=== PATIENT | female | born 1945 | race Caucasian/White ===

== ENCOUNTER 2023-01-16 14:17 | Emergency (ER) | payer BC, SELFPAY ==
[2023-01-16 14:30] VITALS: BP 128/81; PULSE 77; RESP 18; TEMP 37.3; O2SAT 97
--- NOTE | 2023-01-16 14:38 | W.ED.GENAD ---
Discharge Plan Discharge Details Chief Complaint: Fall/Non TraumaCriteria Clinical Impression: Immunization, tetanus-diphtheria, Skin tear of left elbow without complication Primary Care Provider: Lauren Calzada ED Provider: Alfredo Daniels Home Meds and New Rx's Prescriptions: No Action No Known Home Meds Medical Decision Making This is an overall well-appearing normothermic and not tachycardic 78-year-old female with remote bilateral hip prostheses now with bilateral groin pain status post fall concerning for periprosthetic fractures. Primary survey intact. Reassuring shock index. On secondary survey patient has a left elbow skin tear. We will clean and dress her wound. Will update tetanus status. No underlying left elbow tenderness to suggest acute osseous abnormality so will defer x-ray at this point time. Patient did reportedly hit her head. Based on her age will obtain CT head. No midline cervical spinal tenderness and negative based on Nexus criteria's as result, no indication for CT cervical spine. No back tenderness to suggest benefit from axial imaging given my exceedingly low suspicion for fracture. Per Nexus criteria, cervical CT not obtained. The patient had no c-spine midline tenderness, no evidence of intoxication, was AAOx3, had no focal neurological deficits, and no painful distracting injuries. No preceding chest pain to suggest ACS. No preceding dizziness to suggest PE. No recent nausea nor vomiting to suggest intra-abdominal process. Similarly given no GI losses my suspicion for SALAS and acute electrolyte abnormalities is exceedingly low so we will defer BMP at this point time. Patient is not pale nor is she had any black or bloody stools to suggest acute GI bleed. No reported shortness of breath and equal breath sounds so I am not concerned for pneumothorax so we will defer chest imaging at this point time given the lack of chest wall tenderness. No hypoxia nor chest tenderness to suggest increased risk for rib fractures. If plain films are negative for any acute osseous abnormalities of the patient's hips and pelvis will obtain dry CT scan of her pelvis to increase sensitivity for periprosthetic fractures. 3:[address] head negative for any acute intracranial findings. 3:53 PM Patient's x-ray was negative for any acute osseous abnormalities and negative for any periprosthetic fractures. Given my concern for fracture will complete a dry CT pelvis. I had to order a CT abdomen pelvis but I spoke with Marcio from radiology and I wrote in my order that I only needed a CT of her pelvis without contrast. I also ordered IV acetaminophen for analgesia and basic labs in the event that the patient required hospitalization for MRI which could certainly increase sensitivity for periprosthetic fracture above both plain films and CT scan. Patient may or may not benefit from evaluation by PT in the morning but will defer this to Amirah Gibbs to whom I signed patient out. HPI General Date/Time Provider Initiated Documentation: 01/16/23 14:25. HPI Narrative: This is a previously healthy 78-year-old female arriving via private vehicle with remote prior bilateral hip replacements now with groin pain. She reports that 2 days ago a large dog jumped on her chest causing her to fall backwards and land on the ground. She hit her head but did not lose consciousness. She was able to get up but subsequently has had to ambulate using crutches which is new to her. She lives alone in [facility]. She is not on any blood thinners. She denies any neck pain nausea vomiting shortness of breath chest pain dysuria and frequency. No shortness of breath nor chest pain. She occasionally drinks ethanol but denies routine tobacco and illicits. Related Data Home Medications Medication Instructions Recorded Confirmed Unknown [No Known Home Meds] 01/16/23 01/16/23 Allergies Allergy/AdvReac Type Severity Reaction Status Date / Time No Known Allergies Allergy Unverified 01/16/23 14:35 General Stated Complaint: Fall/Non TraumaCriteria ELADIO: 3 PFSH All Active Problems (Updated 01/16/23 @ 14:54 by Alfredo Daniels MD) Immunization, tetanus-diphtheria (Acute) Skin tear of left elbow without complication (Acute) Social History Smoking/Tobacco Use Status: Never Smoking risk assessment performed?: Yes Alcohol Intake: current Alcohol Intake frequency: holidays/special occasions only Alcohol type: beer Substance use type: does not use Do you feel safe at home: Yes Do you feel safe in your relationship?: Yes Exam Narrative Exam Narrative: General: Well-appearing in no acute distress speaking in complete sentences. Head: Normocephalic, atraumatic. Eye: Pupils equal, round reactive to light. Extraocular eye movements intact. No conjunctival injection. No scleral icterus. Ear, nose, mouth, throat: Grossly normal inspection. Normal voice, handling secretions normally. Neck: Trachea midline. No midline cervical spinal tenderness. Back: No midline thoracic nor lumbar spinal tenderness. No step-offs no deformities. Cardiovascular: Well-perfused distal extremities. Regular rate and rhythm. Respiratory: Nonlabored respiration. Clear lungs bilaterally. Chest wall: No chest wall tenderness Gastrointestinal: Scaphoid, nontender and nondistended abdomen. No rebound or guarding. Musculoskeletal: Patient does have difficulty lifting her right leg onto the stretcher. Her pelvis is stable to anterior and posterior compression. She does have pain in her right groin with flexing her right hip passively and her left hip passively. Bilateral feet warm and well-perfused. Right upper extremity no tenderness. Left upper extremity with skin tear overlying the left elbow. No underlying osseous tenderness. Range of motion intact in the right elbow. Skin: Normal for age and race, grossly normal temperature and turgor. No acute rash. Neurologic: Alert and appropriate, no apparent acute deficits. Psychiatric: Mood and manner are appropriate. Grooming and personal hygiene are appropriate. Course Vital Signs Vital signs: Vital Signs Temperature 37.3 C 01/16/23 14:30 Pulse 77 01/16/23 14:30 Respiratory Rate 18 01/16/23 14:30 Blood Pressure 128/81 01/16/23 14:30 Pulse Oximetry 97 01/16/23 14:30 Temperature 37.3 C 01/16/23 14:30 Temperature Source Skin 01/16/23 14:30 Pulse 77 01/16/23 14:30 Respiratory Rate 18 01/16/23 14:30 Respiratory Effort Normal 01/16/23 14:36 Blood Pressure 128/81 01/16/23 14:30 Blood Pressure Position Sitting 01/16/23 14:30 Pulse Oximetry 97 01/16/23 14:30 Oxygen Delivery Method Room Air 01/16/23 14:30 Oxygen Flow Rate 0 01/16/23 14:30 Pain Level 7 01/16/23 14:30
--- NOTE | 2023-01-16 14:45 | DI.CT_ITS ---
Exam(s) CT HEAD WO EXAM: CT HEAD WO CLINICAL HISTORY: Head strike history of falling. TECHNIQUE: Imaging Protocol: Axial computed tomography images with coronal and sagittal reformatted images were created and reviewed COMPARISON: No exams were available for comparison FINDINGS: There are no skull fractures. There is no fluid in the visualized paranasal sinuses. There is no evidence of intracranial hemorrhage, mass effect, or shift of midline structures. There are no extra-axial fluid collections. The ventricles are not enlarged or shifted and there is no blo od within the ventricular system nor within the basal cisterns. IMPRESSION: No acute intracranial findings on this noninfused CT scan of the brain. RADIATION DOSE DELIVERED: 640.04mGy.cm Total DLP DATA REPOSITORY: All CT scans at this facility are submitted to the National Radiology Data Registry (NRDR) Dose Index Registry (DIR) with the [employer] ([employer]). RADIATION OPTIMIZATION: All CT scans at this facility use at least one of these dose optimization te chniques: automated exposure control; mA and/or kV adjustment per patient size (includes targeted exa ms where dose is matched to clinical indication); or iterative reconstruction.
--- NOTE | 2023-01-16 14:51 | DI.RAD_ITS ---
Exam(s) XR HIP PELVIS ADULT BL EXAM: XR HIP PELVIS ADULT BL CLINICAL HISTORY: Left hip pain status post fall history of implants. TECHNIQUE: 2D digital imaging was performed. COMPARISON: No exams were available for comparison FINDINGS: 3 views There is no evidence of obvious acute fracture in the pelvis. Slight irregularity in the inferior pu bic ramus on the left side noted but not have the appearance of an acute fracture site. There are bilateral hip prostheses which appear to be in satisfactory position alignment. No fractur e or loosening evident. IMPRESSION: Intact bilateral hip prostheses. No fractures nor loosening evident. DATA REPOSITORY: RADIATION DOSE DELIVERED:
[2023-01-16 16:31] LABS: Abs Immature Grans 0.03 10^3/uL (0.0-0.06); Absolute Basophil Count 0.02 10^3/uL (0.0-0.2); Absolute Eosinophil Count 0.06 10^3/uL (0.0-0.7); Absolute Lymphocyte Count 1.08 10^3/uL (1.2-3.4); Absolute Neutrophil Count 6.25 10^3/uL (1.2-6.7); Basophils % 0.2; Eosinophils % 0.7; HCT 35.5 % (36.0-46.0); HGB 12.2 g/dL (11.2-15.7); Immature Grans % 0.4; Lymphocytes % 13.3; MCH 31.3 pg (27.0-33.0); MCHC 34.4 % (32.0-36.0); MCV 91 fL (80-95); MPV 9.5 fL (8.0-11.0); Monocytes % 8.6; Neutrophils % 76.8; Platelet Count 176 10^3/uL (130-400); RDW 12.6 % (11.7-14.6); RDW-SD 41.7 fL; WBC 8.14 10^3/uL (4.4-10.8)
[2023-01-16] MEDS: ACETAMINOPHEN 1,000 MG/100 ML BTL 400 MG IVPB (16:36)
[2023-01-16 16:44] LABS: Anion Gap 8.4 mmol/L (3-11); BUN 14 mg/dL (7-18); CO2 24.6 mmol/L (21.0-32.0); CREATININE 0.7 mg/dL (0.55-1.02); Calcium 8.6 mg/dL (8.5-10.1); Chloride 102 mmol/L (98-107); Estimated GFR 87.92 (mL/min/1.73m2); Glucose 94 mg/dL (74-106); Potassium 3.9 mmol/L (3.5-5.1); Sodium 135 mmol/L (136-145)
--- NOTE | 2023-01-16 16:49 | W.ORTHOCONSU ---
Date of service: 01/16/23 Time of Service: 16:49 History of Present Illness History of Present Illness Chief Complaint: Bilateral hip/groin pain Narrative: Puja is a 78-year-old female who fell approximately 2 or so days ago. She had a large dog that jumped up causing her to fall backwards landing on the ground. She landed directly on her backside including her buttock and her head. She was able to ambulate and has been able to ambulate but has done so with some increase in pain. She is status post bilateral hip replacements performed about 16 or 17 years ago. She is otherwise healthy and lives independently and is very active. This hip pain is new. She denies any preinjury hip pain. She has been using the crutches for ambulation which does make a possible. However she finds that standing is actually not very painful. However, moving seems to be the most painful, especially with trying to flex the hip, right worse than left. She describes his pain as being in the groin. She feels that it is somewhat muscle or soft tissue. She denies numbness or tingling. She denies radiation of pain down to the leg or into the feet. Consults Consult date: 01/16/23 Requesting physician: Alfredo Daniels Consult Reason Bilateral hip pain with history of replacements Assessment and Plan Assessment and plan (1) Acute hip pain: Status: Acute Assessment and plan: Puja is a 78-year-old active and independent female who presents for bilateral hip pain after a fall. Most likely this represents simply a soft tissue strain about the hips, most likely hip flexors. I do not fully understand the mechanism to result in this except that she was trying to guard to protect her self. She does not have much pain with passive motion and does not have pain with manipulation of the bones themselves. The x-ray does not show fracture. I am concerned that there may be some subtle loosening of both of these hip replacements. However, she denies any preinjury pain and therefore this is also less likely. Therefore, I would recommend that we just give this time. I would recommend crutches with protected weightbearing. She may advance her activities as tolerated. She should also utilize anti-inflammatories. If she does not seem to start having improvements in the next 2 weeks and I would reevaluate her in the office. We will call to check in on her in the next couple weeks to make sure things are improving. Review of Systems All systems reviewed & are unremarkable except as noted in HPI and below PFSH All Active Problems Acute hip pain (Acute) Social History Smoking/Tobacco Use Status: Never Smoking risk assessment performed?: Yes Alcohol Intake: current Alcohol Intake frequency: holidays/special occasions only Alcohol type: beer Substance use type: does not use Do you feel safe at home: Yes Do you feel safe in your relationship?: Yes Exam Narrative Exam Narrative: Resting comfortably on the hospital stretcher. Brief evaluation of the bilateral lower extremity shows no malpositioning. She is able to tolerate internal and external rotation of both legs in the supine position. She does have a recreation of pain when she tries to actively flex the right hip although there is no defect noted. If I passively flex the hip she does not seem to have as much pain. Axial loading of the hip does not seem to increase pain. There is no pain to percussion of the pelvis. No pain to compression either in the AP or medial lateral direction. No pain with direct pressure against the greater trochanter. No overlying skin defects. No signs of break in the skin. Results Last Vital Signs Temp 37.3 C 01/16/23 14:30 Pulse 77 01/16/23 14:30 Resp 18 01/16/23 14:30 BP 128/81 01/16/23 14:30 Pulse Ox 97 01/16/23 14:30 Labs 01/16/23 16:25 01/16/23 16:25 Labs: Laboratory Results - last 24 hr 01/16/23 16:25 WBC 8.14 RBC 3.90 L Hgb 12.2 Hct 35.5 L MCV 91 MCH 31.3 MCHC 34.4 RDW 12.6 Plt Count 176 MPV 9.5 Immature Gran % 0.4 Neutrophils % 76.8 Lymphocytes % 13.3 Monocytes % 8.6 Eosinophils % 0.7 Basophils % 0.2 Nucleated RBC % 0.0 Absolute Neutrophils 6.25 Absolute Lymphocytes 1.08 L Absolute Monocytes 0.70 Absolute Eosinophils 0.06 Absolute Basophils 0.02 Imaging Imaging Studies: X-ray of the pelvis and hip shows bilateral hip replacements. 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 There is also an apparent sclerotic halo around both but there also appears to be some bone well attached to the implants. Without previous x-rays to compare it is unknown if this may represent some loosening. Nevertheless, I do not see any fracture. I do not see an acute complications.
== END 2023-01-16 17:23 | disposition home or self-care (01) ==
PROVIDERS: Emergency Medicine; Emergency Provider Nurse Practitioner Acute Care; PCP Nurse Practitioner Family
DX: S09.90XA Unspecified injury of head, initial encounter (principal); W19.XXXA Unspecified fall, initial encounter; S51.012A Laceration without foreign body of left elbow, initial encounter; Z96.643 Presence of artificial hip joint, bilateral
CPT/HCPCS: 73521; 80048; 90471; 96365; 99284; 70450; 85025; J0131